=== PATIENT | female | born 1990 | race Caucasian/White ===

== ENCOUNTER 2020-09-03 00:09 | Emergency (ER) | payer BC ==
[~2020-09-03] VITALS: Ht 167.6 cm; Wt 61.4 kg
[2020-09-03] MEDS ORDERED: ACETAMINOPHEN 500 MG TABLET PO ONE ×2 (01:15)
[2020-09-03] MEDS ORDERED: BACITRACIN 0.9 GM PACKET OINTMENT TP ONE (01:30)
[2020-09-03 02:30] VITALS: BP 117/72
[2020-09-03] MEDS ORDERED: PERTUSS(ACELL),DIPH,TET VAC/PF 0.5 ML SYRINGE IM. ONE (02:30)
== END 2020-09-03 02:40 | disposition home or self-care (01) ==
LOC: EMS 00:12
DX: S00.511A Abrasion of lip, initial encounter (principal); S50.311A Abrasion of right elbow, initial encounter; S50.312A Abrasion of left elbow, initial encounter; S80.211A Abrasion, right knee, initial encounter; V19.9XXA Pedal cyclist (driver) (passenger) injured in unspecified traffic accident, initial encounter; Y93.89 Activity, other specified; Y92.89 Other specified places as the place of occurrence of the external cause; Y99.8 Other external cause status
CPT/HCPCS: 70450; 72125; 90471; 90715; 99285